=== PATIENT | female | born 1960 | race Caucasian/White ===

== ENCOUNTER 2021-03-20 16:25 | Inpatient (IN) | payer SELFPAY ==
[~2021-03-20] VITALS: Ht 167.6 cm; Wt 159.5 kg
[2021-03-20 17:12] LABS: Hematocrit 43.6 % (33.0-51.0); Hemoglobin 12.5 g/dL (11.5-16.0); LYMPHOCYTES PERCENT AUTO 7 % (21-46); MONOCYTES ABSOLUTE AUTO 1.55 K/mm3 (0.16-1.47); MONOCYTES PERCENT AUTO 8 % (4-13); Mean Corpuscular HGB 25.6 pg (26.0-34.0); Mean Corpuscular HGB Conc 28.7 g/dL (31.5-36.5); Mean Corpuscular Volume 89 fL (80-100); Mean Platelet Volume 10.1 fL (9.1-12.4); NRBC ABSOLUTE 0.14 K/mm3 (0.00-0.02); NRBC Auto 0.7 /100 WBC (0.0-0.2); Platelet Count 301 K/mm3 (150-400); RDW Coefficient Variation 21.8 % (11.7-14.2); RDW Standard Deviation 70.5 fL (35.1-46.3); Red Blood Cell Count 4.89 M/mm3 (3.80-5.20); White Blood Cell Count 18.88 K/mm3 (4.00-11.30)
[2021-03-20 17:14] LABS: BASOPHILS ABSOLUTE AUTO 0.03 K/mm3 (0.00-0.23); BASOPHILS PERCENT AUTO 0 % (0-2); EOSINOPHILS ABSOLUTE AUTO 0.01 K/mm3 (0.00-0.68); EOSINOPHILS PERCENT AUTO 0 % (0-6); IMMATURE GRAN ABSOLUTE AUTO 1.49 K/mm3 (0.00-0.10); IMMATURE GRAN PERCENT AUTO 8 % (0-1); NEUTROPHILS PERCENT AUTO 77 % (41-73)
[2021-03-20 17:36] LABS: Alanine Aminotransfer (ALT/SGP 14 U/L (12-78); Albumin, Blood 1.7 g/dL (3.4-5.0); Albumin/Globulin Ratio 0.4 (0.8-1.8); Alk Phos 92 U/L (50-136); Anion Gap 6 mmol/L (6-16); Aspartate Aminotrans (AST/SGOT 19 U/L (12-37); Blood Urea Nitrogen 24 mg/dL (8-24); CO2, Blood 27 mmol/L (21-32); Calcium, Blood 9.8 mg/dL (8.5-10.1); Chloride, Blood 100 mmol/L (98-108); Globulin, Blood 4.4 g/dL (2.2-4.0); Glomerular Filtration Rate >60 (60-); Glucose, Blood 117 mg/dL (70-99); Potassium, Blood 4.8 mmol/L (3.5-5.5); Sodium, Blood 133 mmol/L (136-145); Total Protein, Blood 6.1 g/dL (6.4-8.2)
[2021-03-20 18:12] LABS: BAND PERCENT MAN 45 % (0-8); BASOPHILS PERCENT MAN 0 % (0-2); EOSINOPHILS PERCENT MAN 0 % (0-6); LYMPHOCYTES % ATYPICAL MANUAL 1 % (0-0); LYMPHOCYTES ABSOLUTE MAN 1.13 K/mm3 (0.84-5.20); LYMPHOCYTES PERCENT MAN 5 % (21-46); METAMYELOCYTE ABSOLUTE MAN 0.75 K/mm3 (0.00-0.00); METAMYELOCYTE PERCENT MAN 4 % (0-0); MONOCYTES ABSOLUTE MAN 1.69 K/mm3 (0.16-1.47); MONOCYTES PERCENT MAN 9 % (4-13); MYELOCYTE ABSOLUTE MAN 0.37 K/mm3 (0.00-0.00); MYELOCYTE PERCENT MAN 2 % (0-0); NEUTROPHILS ABSOLUTE MAN 14.91 K/mm3 (1.96-9.15); SEG NEUTROPHILS PERCENT MAN 34 % (41-73); TOTAL CELLS COUNTED 100
[2021-03-21 01:28] LABS: Source, Urine Clean Catch
[2021-03-21 01:30] LABS: Blood, Urine Neg (Neg); Glucose Qualitative, Urine Neg (Neg); Ketones, Urine 1+ (Neg); Leukocyte Esterase, Urine 1+ (Neg); Nitrite, Urine Neg (Neg); Protein, Urine 2+ (Neg); Urobilinogen, Urine 4+ (Normal)
[2021-03-21 02:05] LABS: Bilirubin, Urine 2+ (Neg)
[2021-03-21 02:06] LABS: Color, Urine Amber (P-Yellow)
[2021-03-21 02:07] LABS: Amorphous Light (0-Heavy); Appearance, Urine Hazy (Clear); Bacteria Few /hpf; Hyaline Casts 0-2 /lpf (0-2); Red Blood Cells, Urine 0-2 /hpf (0-2); Squamous Epithelial Cells Few /hpf (Few)
[2021-03-21 03:23] LABS: Hematocrit 37.4 % (33.0-51.0); Hemoglobin 10.8 g/dL (11.5-16.0); Mean Corpuscular HGB 26.2 pg (26.0-34.0); Mean Corpuscular HGB Conc 28.9 g/dL (31.5-36.5); Mean Corpuscular Volume 91 fL (80-100); Mean Platelet Volume 10.4 fL (9.1-12.4); NRBC ABSOLUTE 0.08 K/mm3 (0.00-0.02); NRBC Auto 0.5 /100 WBC (0.0-0.2); Platelet Count 240 K/mm3 (150-400); RDW Coefficient Variation 21.4 % (11.7-14.2); RDW Standard Deviation 71.5 fL (35.1-46.3); Red Blood Cell Count 4.12 M/mm3 (3.80-5.20); White Blood Cell Count 17.08 K/mm3 (4.00-11.30)
[2021-03-21 03:47] LABS: BAND PERCENT MAN 16 % (0-8); BASOPHILS PERCENT MAN 0 % (0-2); EOSINOPHILS PERCENT MAN 0 % (0-6); LYMPHOCYTES ABSOLUTE MAN 0.85 K/mm3 (0.84-5.20); LYMPHOCYTES PERCENT MAN 5 % (21-46); METAMYELOCYTE ABSOLUTE MAN 0.34 K/mm3 (0.00-0.00); METAMYELOCYTE PERCENT MAN 2 % (0-0); MONOCYTES ABSOLUTE MAN 0.34 K/mm3 (0.16-1.47); MONOCYTES PERCENT MAN 2 % (4-13); MYELOCYTE ABSOLUTE MAN 0.34 K/mm3 (0.00-0.00); MYELOCYTE PERCENT MAN 2 % (0-0); NEUTROPHILS ABSOLUTE MAN 15.03 K/mm3 (1.96-9.15); PROMYELOCYTE ABSOLUTE MAN 0.17 K/mm3 (0.00-0.00); PROMYELOCYTE PERCENT MAN 1 % (0-0); SEG NEUTROPHILS PERCENT MAN 72 % (41-73); TOTAL CELLS COUNTED 100
[2021-03-21 03:48] LABS: Albumin, Blood 1.9 g/dL (3.4-5.0); Albumin/Globulin Ratio 0.5 (0.8-1.8); Bilirubin, Total 3.5 mg/dL (0.1-1.0); Bun/Creatinine Ratio 27.4 (12.0-20.0); Calcium, Blood 9.5 mg/dL (8.5-10.1); Creatinine, Blood 0.99 mg/dL (0.40-1.00); Globulin, Blood 3.8 g/dL (2.2-4.0); Potassium, Blood 4.8 mmol/L (3.5-5.5); Total Protein, Blood 5.7 g/dL (6.4-8.2)
--- NOTE | 2021-03-21 07:48 | NUR ---
Assumed care. VSS on 2L. Tea colored urine in lane cath. Pt is alert and oriented, very deconditioned. Surgeon at bedside getting history and consulting on pt right now.
--- NOTE | 2021-03-21 08:12 | NUR ---
Correction from previous note, hospital MD was rounding on pt, surgery has not consulted yet this AM. IV lasix and IV abx given per orders. Pt is NPO.
--- NOTE | 2021-03-21 10:37 | NUR ---
Skin assessment: Assessed pt skin this morning with the assistance of ACID PUMP OPERATOR due to pt large size and needing help rolling pt. Left side of abdomen is purplish/red as well as around back and on buttocks. Hard to know if it is from pressure or bruising, MD notifed. I found a wound on left buttocks, cleansed and floated hips. Q2hr weight shifts provided. Foam dressing placed where lane plastic is to prevent pressure injury due to anatomy in pannus area.
--- NOTE | 2021-03-21 12:53 | NUR ---
I spoke with Dr. Blackwell surgeon. He notified me he will not be doing any interventions and that I can add a diet back in for pt.
[2021-03-21 14:35] LABS: Hematocrit 36.6 % (33.0-51.0); Hemoglobin 10.4 g/dL (11.5-16.0)
--- NOTE | 2021-03-21 17:08 | NUR ---
Shift note: Pt is oriented but has been pretty sleepy and lethargic today. She is alert when you are in room and talking with her, but will quickly fall back to sleep when not in the room. VSS on 2L, tried to titrate pt off oxygen, but will desat when sleeping and has been sleeping most of the day. Pt wears CPAP at night at home, but denies and oxygen use at home. Powerglide was placed in right upper arm. IV abx and lasix given per orders. Surery consulted and decided on no interventions at this time. Abdominal US completed today, see results. Lift used in room for boosting and 2 person assist with Q2 hour weight shifts. Tele: sinus tach 100s. Lara in place and draining, urine has lightened up throughout the day. Started as a tea color and now is more of a dark yellow.
--- NOTE | 2021-03-22 00:45 | NUR ---
PT DECLINING TO WEAR HOME C-PAP. SET UP BY RT, PT STATES SHE USUALLY DOESN'T USE THE C-PAP AT HOME BECAUSE SHE SLEEPS IN A RECLINER. AT THIS TIME, SATING ABOVE 90% ON 2LPM VIA NC. SLEEPING.
--- NOTE | 2021-03-22 01:08 | NUR ---
UPDATED PT'S DAUGHTER VIA TELEPHONE. NO FURTHER QUESTIONS AT THIS TIME.
--- NOTE | 2021-03-22 04:54 | NUR ---
SHIFT SUMMARY ANDRE HAD ONE EPISODE OF PAIN, STATING IT WAS CONSTANT AND GENERALLY UNCOMFORTABLE, RATING PAIN IN LOWER BACK 4/10. RECEIVED 25MCG FENTANYL IV, WHICH PROVIDED RELIEF. MARI IN PLACE DRAINING TEA COLORED URINE. NEW IV INSERTED IN LEFT WRIST, POWERGLIDE IN BEULAH. TELEMETRY MONITORED PT IN SINUS LOW 100'S. ANTIFUNGAL CREAM APPLIED TO FOLDS IN ABDOMINAL AREA. PRELIMINARY BLOOD CULTURE SHOWED GRAM + COCCI IN CLUSTERS. 2LPM VIA NASAL CANNULA. LUNGS CLEAR, BUT DIMINISHED.
[2021-03-22 07:02] LABS: Mean Corpuscular HGB 25.7 pg (26.0-34.0); Mean Corpuscular HGB Conc 28.6 g/dL (31.5-36.5); Mean Corpuscular Volume 90 fL (80-100); Mean Platelet Volume 9.8 fL (9.1-12.4); NRBC ABSOLUTE 0.06 K/mm3 (0.00-0.02); NRBC Auto 0.3 /100 WBC (0.0-0.2); Platelet Count 210 K/mm3 (150-400); RDW Coefficient Variation 21.2 % (11.7-14.2); RDW Standard Deviation 70.1 fL (35.1-46.3); Red Blood Cell Count 3.89 M/mm3 (3.80-5.20); White Blood Cell Count 18.83 K/mm3 (4.00-11.30)
[2021-03-22 07:18] LABS: Anion Gap 4 mmol/L (6-16); Blood Urea Nitrogen 23 mg/dL (8-24); Bun/Creatinine Ratio 27.4 (12.0-20.0); CO2, Blood 32 mmol/L (21-32); Calcium, Blood 8.9 mg/dL (8.5-10.1); Chloride, Blood 99 mmol/L (98-108); Creatinine, Blood 0.84 mg/dL (0.40-1.00); Glomerular Filtration Rate >60 (60-); Glucose, Blood 95 mg/dL (70-99); Potassium, Blood 3.8 mmol/L (3.5-5.5); Sodium, Blood 135 mmol/L (136-145)
[2021-03-22 07:28] LABS: BAND PERCENT MAN 23 % (0-8); BASOPHILS PERCENT MAN 0 % (0-2); EOSINOPHILS PERCENT MAN 0 % (0-6); LYMPHOCYTES ABSOLUTE MAN 1.88 K/mm3 (0.84-5.20); LYMPHOCYTES PERCENT MAN 10 % (21-46); METAMYELOCYTE ABSOLUTE MAN 0.18 K/mm3 (0.00-0.00); METAMYELOCYTE PERCENT MAN 1 % (0-0); MONOCYTES ABSOLUTE MAN 1.12 K/mm3 (0.16-1.47); MONOCYTES PERCENT MAN 6 % (4-13); MYELOCYTE ABSOLUTE MAN 0.56 K/mm3 (0.00-0.00); MYELOCYTE PERCENT MAN 3 % (0-0); NEUTROPHILS ABSOLUTE MAN 14.68 K/mm3 (1.96-9.15); PROMYELOCYTE ABSOLUTE MAN 0.37 K/mm3 (0.00-0.00); PROMYELOCYTE PERCENT MAN 2 % (0-0); SEG NEUTROPHILS PERCENT MAN 55 % (41-73); TOTAL CELLS COUNTED 100
--- NOTE | 2021-03-22 08:44 | NUR ---
DR. MORA AND DAYTON IN ROOM AT ABOUT 0830. PT MEDICAL STATUS, NO TELE. INSPECTOR EXHAUST EMISSIONS MADE AWARE.
--- NOTE | 2021-03-22 10:32 | NUR ---
PRESSURE ULCER SORES NOTED TO L LOWER ABD, WITH BREAK IN SKIN FOLD CREASE AND TO L BUTTOCK. PT CONSENTED TO PHOTOGRAPHS, PICTURES NOW IN CHART. WOUNDS DRESSED WITH MEPILEX, WILL CONTINUE Q2 TURNING.
[2021-03-22 12:31] LABS: Vancomycin, Trough 25.4 ug/mL (5.0-10.0)
--- NOTE | 2021-03-22 17:33 | NUR ---
SUMMARY: PT IS MED STATUS, NO TELE. A/O, VSS TODAY. PT DECONDITIONED, LIFT USED FOR REPOSITIONING Q2, PT ABLE TO SIT AT EDGE OF BED WITH THERAPY, 3 MAX ASSIST. CONTINUES ON 2L 02, DENIES SOB, LUNGS CLEAR/DIM. MARI DRAINING VASU URINE, IV ANTIBIOITICS INFUSED OTHERWISE SALINE LOCKED. PT REPORTS DECREASED APPETITE, SMALL AMT OF PO INTAKE. DENIES N/V, REPORTS "SOME PAIN" AT RLQ WHEN DRINKING FLUIDS. NO ACUTE SAFETY CONCERNS AT THIS TIME. WILL MONITOR AND REPORT TO EMPERATRIZ TURNER.
--- NOTE | 2021-03-23 05:58 | NUR ---
SHIFT SUMMARY MED NO TELE STATUS. PATIENT IS A/O x4, ANSWERS ALL QUESTIONS APPROPRIATELY. VSS. PATIENT REMAINS ON 2L NC WHILE AWAKE, CPAP WHILE SLEEPING. 02 SATS ABOVE 90%. SLEPT THE MAJORITY OF SHIFT, WAKES EASILY TO VERBAL STIMULI. MARI IN PLACE DRAINING DARK VASU URINE. Q2 TURNS. TOLERATING SMALL AMOUNTS OF PO FLUID INTAKE WELL. PATIENT REPORTED MILD PAIN IN LLQ BUT REFUSED MEDICATION AND NONPHARMACOLOGICAL INTERVENTIONS TO HELP WITH PAIN. NO OTHER SIGNIFICANT CHANGES. WILL REPORT TO DAY SHIFT RN.
--- NOTE | 2021-03-23 18:20 | NUR ---
GABINO AFEBRILE, DENIES CHEST PAIN, HAS SOME MINOR ABD PAIN, ZOSYN HAS BEEN INFUSED TWICE TODAY. GABINO STILL MED NO TELE. NO ROOM AVAILABLE. HAS GREAT URINE OUTPUT ESPECIALLY AFTER THE 40 OF LASIX. LABS UNREMARKABLE EXCEPT FOR +URINE CULTURE. STILL ON 2L VIA NC, REPOSITIONED Q2 IF NOT MORE OFTEN, SHE WORKED WITH PHYSICAL THERAPY, BED BATH WAS PERFORMED TODAY, NO BM AT THIS TIME. SR 80'S SPO2>94 DID DESAT WITH MOVING TO SIDE OF THE BED BUT RECOVERED FASTER THAN PREVIOUSLY REPORTED. UPDATED PATIENTS FAMILY, WILL CONTINUE TO MONITOR AT THIS TIME.
[2021-03-24 04:32] LABS: Hematocrit 34.4 % (33.0-51.0); Hemoglobin 9.9 g/dL (11.5-16.0); Mean Corpuscular HGB 25.8 pg (26.0-34.0); Mean Corpuscular HGB Conc 28.8 g/dL (31.5-36.5); Mean Corpuscular Volume 90 fL (80-100); Mean Platelet Volume 9.8 fL (9.1-12.4); Platelet Count 182 K/mm3 (150-400); RDW Coefficient Variation 21.1 % (11.7-14.2); RDW Standard Deviation 69.2 fL (35.1-46.3); Red Blood Cell Count 3.83 M/mm3 (3.80-5.20); White Blood Cell Count 19.72 K/mm3 (4.00-11.30)
[2021-03-24 05:02] LABS: Anion Gap 6 mmol/L (6-16); Blood Urea Nitrogen 16 mg/dL (8-24); Bun/Creatinine Ratio 21.9 (12.0-20.0); CO2, Blood 35 mmol/L (21-32); Calcium, Blood 8.7 mg/dL (8.5-10.1); Chloride, Blood 95 mmol/L (98-108); Creatinine, Blood 0.73 mg/dL (0.40-1.00); Glomerular Filtration Rate >60 (60-); Glucose, Blood 103 mg/dL (70-99); Potassium, Blood 3.3 mmol/L (3.5-5.5); Sodium, Blood 136 mmol/L (136-145)
--- NOTE | 2021-03-24 05:19 | NUR ---
SHIFT SUMMARY PATIENT REMAINS MEDICAL NO TELE STATUS. ALERT AND ORIENTED x4. VSS. PATIENT ON 2-3L OVERNIGHT WITH O2 SATURATION ABOVE 90%. HOME CPAP AT BEDSIDE. TOLERATING PO FLUIDS WELL WITH NO COMPLAINTS OF PAIN. MARI IN PLACE DRAINING DARK VASU URINE. NO BM THIS SHIFT. NO OTHER SIGNIFICANT CHANGES THIS SHIFT, WILL REPORT TO DAY SHIFT RN.
[2021-03-24 05:47] LABS: BAND PERCENT MAN 20 % (0-8); BASOPHILS PERCENT MAN 0 % (0-2); EOSINOPHILS ABSOLUTE MAN 0.19 K/mm3 (0.00-0.68); EOSINOPHILS PERCENT MAN 1 % (0-6); LYMPHOCYTES ABSOLUTE MAN 0.78 K/mm3 (0.84-5.20); LYMPHOCYTES PERCENT MAN 4 % (21-46); METAMYELOCYTE ABSOLUTE MAN 0.39 K/mm3 (0.00-0.00); METAMYELOCYTE PERCENT MAN 2 % (0-0); MONOCYTES ABSOLUTE MAN 1.18 K/mm3 (0.16-1.47); MONOCYTES PERCENT MAN 6 % (4-13); MYELOCYTE ABSOLUTE MAN 0.98 K/mm3 (0.00-0.00); MYELOCYTE PERCENT MAN 5 % (0-0); NEUTROPHILS ABSOLUTE MAN 15.97 K/mm3 (1.96-9.15); PROMYELOCYTE ABSOLUTE MAN 0.19 K/mm3 (0.00-0.00); PROMYELOCYTE PERCENT MAN 1 % (0-0); SEG NEUTROPHILS PERCENT MAN 61 % (41-73); TOTAL CELLS COUNTED 100
--- NOTE | 2021-03-24 18:23 | NUR ---
END OF SHIFT: PATINET IS STILL ON 1-3L VIA NC TO MAINTAIN ABOVE 94%, HAS BEEN SR, IN 80'S DID DESATURATE WITH LARGE TURNS, TURNS PROVIDED Q2 OR SOONER. CLEANED UNDERNEATH PANUS, AND CATH CARE. PATIENT HAS LESS URINE OUTPUT, AND INCREASED EDEMA OF THE RUE AND LLE. NO LASIX IT WAS DC'D PROVIDER AWARE. PATINET APPEPITITE HAS DECREASED AND ORDERED ENSURE FOR SUPPLEMENT. NO TELE IS STILL MED SATTUS. NO CHEST PAIN, DENIES SOB, PAIN WNL. WILL CONTINUE TO MONITOR PATIENT UNTIL SHIFT CHANGE.
--- NOTE | 2021-03-25 05:30 | NUR ---
ASSUMPTION OF CARE: ASSUMED CARE FROM GIOVANNI, RN AT 0035. PATIENT RESTING IN BED WITH PARTIAL CPAP (NOSE ONLY) WITH AN 8.5 L BLEED. NOTE GIVEN TO GIOVANNI FROM PREVIOUS RN STATES PATIENT DOESN'T USE HOME CPAP BECAUSE SETTING IS 15 AND IS TOO STRONG. RT CANNOT CHANGE HOME SETTING, SO CONTACT NEEDS TO BE MADE "WITH WHOEVER IN COMMUNITY DOES CPAPS TO GET HOME CPAP SETTING CHANGED TO 8.5."
--- NOTE | 2021-03-25 05:34 | NUR ---
SHIFT SUMMARY: PATIENT DESAT TO 72% AROUND 0330. TELE CALLED THIS RN WHO WENT TO THE ROOM AND FOUND TUBING HAD DISCONNECTED FROM CPAP. PATIENT AWOKE TO THE ALARMS BUT WAS TOO GROGGY TO ASSESS THE SITUATION. THIS RN EXPLAINED WHAT HAD HAPPENED AND TRIED UNSUCCESSFULLY TO REATTACH HOSE. THIS RN CALLED RT WHO WAS ALSO UNABLE TO REATTACH HOSE AND COULD NOT FIND A REPLACEMENT. PATIENT WAS PLACED ON 3 L NC AND HAS MAINTAINED O2 SATS >94%. ALL OTHER VS HAVE BEEN STABLE THIS SHIFT SINCE ASSUMPTION OF CARE. MIDNIGHT ZOSYN IS STILL RUNNING AT TIME OF THIS NOTE AND WILL COMPLETE ~0800. WILL CONTINUE TO MONITOR AND REPORT TO ONCOMING RN.
[2021-03-25 07:45] LABS: Hematocrit 35.8 % (33.0-51.0); Hemoglobin 10.3 g/dL (11.5-16.0); Mean Corpuscular HGB Conc 28.8 g/dL (31.5-36.5); Mean Corpuscular Volume 90 fL (80-100); Mean Platelet Volume 9.5 fL (9.1-12.4); Platelet Count 249 K/mm3 (150-400); Red Blood Cell Count 3.96 M/mm3 (3.80-5.20); White Blood Cell Count 20.78 K/mm3 (4.00-11.30)
[2021-03-25 08:07] LABS: Anion Gap 5 mmol/L (6-16); Blood Urea Nitrogen 13 mg/dL (8-24); Bun/Creatinine Ratio 17.9 (12.0-20.0); CO2, Blood 36 mmol/L (21-32); Calcium, Blood 9.1 mg/dL (8.5-10.1); Chloride, Blood 94 mmol/L (98-108); Creatinine, Blood 0.73 mg/dL (0.40-1.00); Glomerular Filtration Rate >60 (60-); Glucose, Blood 100 mg/dL (70-99); Potassium, Blood 3.6 mmol/L (3.5-5.5); Sodium, Blood 135 mmol/L (136-145)
[2021-03-25 08:08] LABS: BAND PERCENT MAN 3 % (0-8); BASOPHILS PERCENT MAN 0 % (0-2); EOSINOPHILS ABSOLUTE MAN 0.41 K/mm3 (0.00-0.68); EOSINOPHILS PERCENT MAN 2 % (0-6); LYMPHOCYTES ABSOLUTE MAN 0.83 K/mm3 (0.84-5.20); LYMPHOCYTES PERCENT MAN 4 % (21-46); METAMYELOCYTE PERCENT MAN 1 % (0-0); MONOCYTES ABSOLUTE MAN 1.45 K/mm3 (0.16-1.47); MONOCYTES PERCENT MAN 7 % (4-13); MYELOCYTE ABSOLUTE MAN 0.83 K/mm3 (0.00-0.00); MYELOCYTE PERCENT MAN 4 % (0-0); NEUTROPHILS ABSOLUTE MAN 17.03 K/mm3 (1.96-9.15); SEG NEUTROPHILS PERCENT MAN 79 % (41-73); TOTAL CELLS COUNTED 100
--- NOTE | 2021-03-25 18:12 | NUR ---
TRANSFER SUMMARY PT WAS UNCHANGED MOSTLY THROUGHOUT THE DAY. MED NO TELE. A&OX4. MARI CATHETER DRAINING DARK YELLOW URINE TO GRAVITY. PERFORMED Q2 TURNS. PT RECEIVED 500 ML LACTATED RINGERS JUST PRIOR TO TRANSFER. ZOSYN STILL RUNNING. DECREASED APPETITE THROUGHOUT THE DAY. SUPPLEMENTAL ENSURE DRINKS GIVEN. SCDs USED INTERMITTENTLY THROUGHOUT THE DAY. GOOD ORAL INTAKE. DRINKING WATER APPROPRIATELY. PERFORMED DRESSING CHANGE AT LEFT ABDOMINAL FOLD. PT RECEIVED BED BATH. PT ON 1-3 LITERS NC, INCREASED TO 5 LPM WITH ACTIVITY.
--- NOTE | 2021-03-26 04:26 | NUR ---
SHIFT SUMMARY PATIENT ALERT AND ORIENTED ABLE TO VOICE NEEDS JESSE ANY PAIN CONT IV ZOSYN.MARI PATENT DRAINING BROWN URINE NO ACUTE CHANGE IN THIS SHIFT .PO FLUIDS ENCOURAGED O2 VIA N/C NO SOB NOTED LUNGS SOUNDS CLEAR.
[2021-03-26 05:50] LABS: Hematocrit 35.7 % (33.0-51.0); Hemoglobin 10.3 g/dL (11.5-16.0); Mean Corpuscular HGB 26.1 pg (26.0-34.0); Mean Corpuscular HGB Conc 28.9 g/dL (31.5-36.5); Mean Corpuscular Volume 90 fL (80-100); Mean Platelet Volume 10.1 fL (9.1-12.4); Platelet Count 247 K/mm3 (150-400); RDW Standard Deviation 67.8 fL (35.1-46.3); Red Blood Cell Count 3.95 M/mm3 (3.80-5.20); White Blood Cell Count 20.62 K/mm3 (4.00-11.30)
[2021-03-26 06:09] LABS: Alanine Aminotransfer (ALT/SGP 12 U/L (12-78); Albumin, Blood 1.6 g/dL (3.4-5.0); Albumin/Globulin Ratio 0.3 (0.8-1.8); Alk Phos 94 U/L (50-136); Anion Gap 6 mmol/L (6-16); Aspartate Aminotrans (AST/SGOT 25 U/L (12-37); Bilirubin, Total 1.7 mg/dL (0.1-1.0); Blood Urea Nitrogen 11 mg/dL (8-24); Bun/Creatinine Ratio 15.4 (12.0-20.0); CO2, Blood 35 mmol/L (21-32); Calcium, Blood 9.5 mg/dL (8.5-10.1); Chloride, Blood 94 mmol/L (98-108); Creatinine, Blood 0.71 mg/dL (0.40-1.00); Globulin, Blood 4.7 g/dL (2.2-4.0); Glomerular Filtration Rate >60 (60-); Glucose, Blood 96 mg/dL (70-99); Potassium, Blood 3.7 mmol/L (3.5-5.5); Sodium, Blood 135 mmol/L (136-145); Total Protein, Blood 6.3 g/dL (6.4-8.2)
[2021-03-26 06:21] LABS: BAND PERCENT MAN 14 % (0-8); BASOPHILS PERCENT MAN 0 % (0-2); EOSINOPHILS PERCENT MAN 1 % (0-6); LYMPHOCYTES ABSOLUTE MAN 1.03 K/mm3 (0.84-5.20); LYMPHOCYTES PERCENT MAN 5 % (21-46); METAMYELOCYTE PERCENT MAN 1 % (0-0); MONOCYTES PERCENT MAN 1 % (4-13); MYELOCYTE ABSOLUTE MAN 0.41 K/mm3 (0.00-0.00); MYELOCYTE PERCENT MAN 2 % (0-0); NEUTROPHILS ABSOLUTE MAN 18.55 K/mm3 (1.96-9.15); SEG NEUTROPHILS PERCENT MAN 76 % (41-73); TOTAL CELLS COUNTED 100
--- NOTE | 2021-03-26 17:09 | NUR ---
PATIENT WEAK IN EXTREMITIES. EDEMA +3, LIA AREA ENLARGED WITH WHAT APPEARS TO BE EDEMA. SKIN ON EXTREMITIES BORWN AND RAISED SCALEY. PATIENT HAS A DRESSING ON AN OPEN AREA IN LIA AREA. STAT LOCK FOR MARI WAS PLACED ON THAT AREA THIS AM, SO IT WAS REMOVED THIS SHIFT AND REPLACED ON THE RIGHT THIGH. PATIENT HAS CREAMS FOR ABD. FOLDS. SHE STATES THAT THEY ARE NOT PAINFUL. PATIENT IS ON ROOM AIR AT THIS TIME, HOWEVER SHE WILL PROBABLY NEED 02 AT NIGHT SHE USUALLY WEARS A CPAP, BUT IS UNABLE TO TOLERATE THE CPAP MACHINE THAT IS IN THE ROOM.
--- NOTE | 2021-03-26 17:28 | NUR ---
PATIENT CAME TO US FROM ER MID DAY. SHE WAS ON 10 L HIGHFLO 02. SHE IS NOW DOWN TO 8L02 HIGHFLO AND TOLERATING. SATS ARE 97-98%. SATS DO DECREASE WITH ACTIVITY. NO OTHER SIGNIFICANT CHANGES SINCE TRANSFER NOTE DOCUMENTATION A FEW HOURS AGO.
--- NOTE | 2021-03-27 05:22 | NUR ---
SHIFT SUMMARY Received patient AAOX4 in no acute distress. No complaint of pain or disconfort noted. She is on 2L OF O2 via N/C. She slept throughout the night. We will continue to monitor patient.
[2021-03-27 05:31] LABS: BASOPHILS ABSOLUTE AUTO 0.11 K/mm3 (0.00-0.23); BASOPHILS PERCENT AUTO 1 % (0-2); EOSINOPHILS ABSOLUTE AUTO 0.21 K/mm3 (0.00-0.68); EOSINOPHILS PERCENT AUTO 1 % (0-6); Hematocrit 36.3 % (33.0-51.0); Hemoglobin 10.2 g/dL (11.5-16.0); IMMATURE GRAN ABSOLUTE AUTO 1.18 K/mm3 (0.00-0.10); IMMATURE GRAN PERCENT AUTO 6 % (0-1); LYMPHOCYTES ABSOLUTE AUTO 0.94 K/mm3 (0.84-5.20); LYMPHOCYTES PERCENT AUTO 5 % (21-46); MONOCYTES ABSOLUTE AUTO 1.01 K/mm3 (0.16-1.47); MONOCYTES PERCENT AUTO 6 % (4-13); Mean Corpuscular HGB 25.6 pg (26.0-34.0); Mean Corpuscular HGB Conc 28.1 g/dL (31.5-36.5); Mean Corpuscular Volume 91 fL (80-100); Mean Platelet Volume 9.4 fL (9.1-12.4); NEUTROPHILS ABSOLUTE AUTO 14.92 K/mm3 (1.96-9.15); NEUTROPHILS PERCENT AUTO 81 % (41-73); Platelet Count 291 K/mm3 (150-400); RDW Coefficient Variation 21.1 % (11.7-14.2); RDW Standard Deviation 69.2 fL (35.1-46.3); Red Blood Cell Count 3.99 M/mm3 (3.80-5.20); White Blood Cell Count 18.37 K/mm3 (4.00-11.30)
--- NOTE | 2021-03-27 20:31 | NUR ---
SHIFT SUMMARY PT IS A&O, PLEASANT AND CO-OP. VERY LIMITED MOBILITY TODAY; MORBIDLY OBESE AND NONAMBULATORY AT THIS TIME. PT TURNED Q2 THRU OUT THE DAY WITH PILLOWS TO KEEP OFF BUTTOCKS. 3- MARSHALL SIZE WOUNDS TO COCCYX/LIA AREA NOTED. MEPILEX REPLACED X1 D/T INCONTINENT STOOL TODAY. MARI TO GRAVITY; PATENT. ABD VERY LARGE AND SWOLLEN, ESPECIALLY ON L SIDE. CT CANCELED D/T WEIGHT/SIZE LIMITS. ABD US DONE IN RM AND THEN PT TAKEN DOWN TO IMAGING FOR US GUIDED ASPIRATION OF ABD FLUID. PT DENIED PAIN AFTER PROCEDURE. DECLINED TO WEAR CPAP AT HS; SIGNED REFUSAL FOR RT. P/T HERE TODAY TO WORK WITH PT, BUT IMAGING NEEDING TO COMPLETE US. BARIATRIC RECLINER OBTAINED BY P/T TO ALLOW PT TO GET UP TO CHAIR, BUT PT DID NOT RETURN IN TIME TODAY FOR THERAPY TO GET HER UP. RESTED QUIETLY THIS AFTERNOON. DENIED FURTHER NEEDS. CALL LT IN REACH.
--- NOTE | 2021-03-28 04:09 | NUR ---
SHIFT SUMMARY PATIENT HAD NO ACUTE CHANGES OBSERVED. AXOX 3 AND BEDBOUND. LIFT ROOM. TAKES MEDICATION WHOLE WITH WATER. POWERGLIDE JAMILAH AND PIVS REMAIN INTACT. ON 2L O2 NC PRN AT NIGHT. MARI PATENT AND DRAINING TO GRAVITY. IV ABX INFUSED. VSS/AFEBRILE. DENIES PAIN, SOB, AND N/V. COOPERATIVE WITH CARE. CALL LIGHT IN REACH. BED IN LOWEST POSITION. WILL CONTINUE TO MONITOR UNTIL DAY SHIFT NURSE ASSUMES CARE.
[2021-03-28 06:27] LABS: BASOPHILS PERCENT AUTO 1 % (0-2); EOSINOPHILS ABSOLUTE AUTO 0.22 K/mm3 (0.00-0.68); EOSINOPHILS PERCENT AUTO 1 % (0-6); Hematocrit 35.4 % (33.0-51.0); IMMATURE GRAN ABSOLUTE AUTO 0.73 K/mm3 (0.00-0.10); IMMATURE GRAN PERCENT AUTO 4 % (0-1); LYMPHOCYTES PERCENT AUTO 5 % (21-46); MONOCYTES ABSOLUTE AUTO 0.99 K/mm3 (0.16-1.47); MONOCYTES PERCENT AUTO 6 % (4-13); Mean Corpuscular HGB Conc 28.2 g/dL (31.5-36.5); Mean Corpuscular Volume 92 fL (80-100); Mean Platelet Volume 9.2 fL (9.1-12.4); NEUTROPHILS ABSOLUTE AUTO 13.84 K/mm3 (1.96-9.15); NEUTROPHILS PERCENT AUTO 83 % (41-73); Platelet Count 300 K/mm3 (150-400); RDW Coefficient Variation 20.8 % (11.7-14.2); Red Blood Cell Count 3.85 M/mm3 (3.80-5.20); White Blood Cell Count 16.68 K/mm3 (4.00-11.30)
--- NOTE | 2021-03-28 17:49 | NUR ---
SHIFT SUMMARY PATIENT IS ALERT AND ORIENTED X3. PATIENT IS BEDBOUND BUT HAS WORKED WITH PT AND GOT INTO THE CHAIR TODAY. POWERGLIDE REMAINS INTACT. NO ACUTE ISSUES THIS SHIFT. PATIENT IS ON 2 LITERS 02. VITAL SIGNS REVIEWED. PATIENT DENIES PAIN, NAUSEA, VOMITTING OR SOB THIS SHIFT. PATIENT IS PLEASENT AND COOPERATIVE WITH CARE. BED IN LOWEST AND LOCKED POSITION. CALL LIGHT IN PLACE. WILL MONITOR UNTIL SHIFT CHANGE.
--- NOTE | 2021-03-29 04:22 | NUR ---
SHIFT SUMMARY Pt rested well, reports pain to LUQ with movement, denies need for pain med. No c/o nausea, johnson po well, lane patent with dark, concentrated urine noted, lane care done, loose bm x 2 this shift. Afebrile, vss, abx's per mar, no c/o chills. 2 small open areas noted to pannus and L buttocks, covered with bordered foam drsg. Pt repositioned for comfort, anticipate d/c when medically stable.
[2021-03-29 05:36] LABS: Hematocrit 34.6 % (33.0-51.0); Hemoglobin 9.8 g/dL (11.5-16.0); Mean Corpuscular HGB 26.2 pg (26.0-34.0); Mean Corpuscular HGB Conc 28.3 g/dL (31.5-36.5); Mean Corpuscular Volume 93 fL (80-100); Mean Platelet Volume 9.4 fL (9.1-12.4); Platelet Count 330 K/mm3 (150-400); RDW Coefficient Variation 21.1 % (11.7-14.2); RDW Standard Deviation 69.9 fL (35.1-46.3); Red Blood Cell Count 3.74 M/mm3 (3.80-5.20); White Blood Cell Count 16.19 K/mm3 (4.00-11.30)
[2021-03-29 06:05] LABS: BAND PERCENT MAN 1 % (0-8); BASOPHILS PERCENT MAN 0 % (0-2); EOSINOPHILS ABSOLUTE MAN 0.32 K/mm3 (0.00-0.68); EOSINOPHILS PERCENT MAN 2 % (0-6); LYMPHOCYTES ABSOLUTE MAN 0.48 K/mm3 (0.84-5.20); LYMPHOCYTES PERCENT MAN 3 % (21-46); MONOCYTES ABSOLUTE MAN 0.64 K/mm3 (0.16-1.47); MONOCYTES PERCENT MAN 4 % (4-13); MYELOCYTE ABSOLUTE MAN 0.48 K/mm3 (0.00-0.00); MYELOCYTE PERCENT MAN 3 % (0-0); NEUTROPHILS ABSOLUTE MAN 14.24 K/mm3 (1.96-9.15); SEG NEUTROPHILS PERCENT MAN 87 % (41-73); TOTAL CELLS COUNTED 100
[2021-03-29 12:10] LABS: M PNEUMONIAE IGG ABS 340 U/mL (0-99); M PNEUMONIAE IGM ABS <770 U/mL (0-769)
--- NOTE | 2021-03-29 16:14 | NUR ---
SHIFT SUMMARY PATIENT IS ALERT AND ORIENTED X4. PATIENT HAS HAD NO COMPLAINTS OF PAIN, SOB, NAUSEA, OR VOMITTING THIS SHIFT. PATIENT HAS WORKED WITH PHYSICAL THERAPY AND GOT TO THE CHAIR WITH A ONE PERSON ASSIST USING A GAIT BELT AND WALKER. VITAL SIGNS REVIEWED. PATIENT HAS HAD NO ACUTE EVENTS THIS SHIFT. MEMPLEX WERE EXCHANGED WITH NEW ONES. PATIENT HAS CONCENTRATED URINE DRAINING TO GRAVITY IN MARI. CALL LIGHT IN PLACE. BED IN LOCKED AND LOWERED POSITION. WILL MONITOR UNTIL SHIFT CHANGE.
[2021-03-30 05:03] LABS: BASOPHILS ABSOLUTE AUTO 0.05 K/mm3 (0.00-0.23); BASOPHILS PERCENT AUTO 0 % (0-2); EOSINOPHILS ABSOLUTE AUTO 0.18 K/mm3 (0.00-0.68); EOSINOPHILS PERCENT AUTO 1 % (0-6); Hematocrit 32.8 % (33.0-51.0); Hemoglobin 9.3 g/dL (11.5-16.0); IMMATURE GRAN ABSOLUTE AUTO 0.18 K/mm3 (0.00-0.10); IMMATURE GRAN PERCENT AUTO 1 % (0-1); LYMPHOCYTES ABSOLUTE AUTO 0.61 K/mm3 (0.84-5.20); LYMPHOCYTES PERCENT AUTO 4 % (21-46); MONOCYTES ABSOLUTE AUTO 0.79 K/mm3 (0.16-1.47); MONOCYTES PERCENT AUTO 5 % (4-13); Mean Corpuscular HGB 26.7 pg (26.0-34.0); Mean Corpuscular HGB Conc 28.4 g/dL (31.5-36.5); Mean Corpuscular Volume 94 fL (80-100); Mean Platelet Volume 9.6 fL (9.1-12.4); NEUTROPHILS ABSOLUTE AUTO 12.74 K/mm3 (1.96-9.15); NEUTROPHILS PERCENT AUTO 88 % (41-73); Platelet Count 331 K/mm3 (150-400); RDW Coefficient Variation 21.3 % (11.7-14.2); Red Blood Cell Count 3.48 M/mm3 (3.80-5.20); White Blood Cell Count 14.55 K/mm3 (4.00-11.30)
--- NOTE | 2021-03-30 05:43 | NUR ---
SHIFT SUMMARY Pt rested well, reports pain somewhat improved to abd this shift, johnson po well, no nausea, afebrile, abx's per mar. Pt has multiple open areas to L abd, L buttocks, and pannus with mepilex drsg covering. Pt a/o x 4, lane patent with dark, concentrated urine noted, lane care done this shift. Pt repositioned for comfort, no bm this shift. VSS, anticipate d/c when medically stable.
--- NOTE | 2021-03-30 15:49 | NUR ---
PT HAD BEDBATH TODAY. PT LEAKING AROUND CATHETER, BUT ALSO URINE IS DRAINING IN BAG. PT IS VERY LARGE AND LIKELY CATHETER IS TOO SMALL FOR PT. PT IS ABLE TO TURN SIDE TO SIDE. PT HAS QUARTER SIZE STAGE 2 PRESSURE SORE TO LEFT SIDE BUTTOCK, NO DRAINAGE NOTED. WOUND CLEANSED AND CLEAN MEPILEX APPLIED. INSERTION SITE ON R ABD HAS COMLETELY HEALED. NO SIGNS OF INFECTION AT SITE, NO REDNESS OR SWELLING. PT ALSO HAD OPEN SORES TO LEFT SIDE OF ABD 4 SMALL STAGE 2 SORES CLEANSED AND COVERED WITH MEPILEX. NO S/S OF INFECTION.
--- NOTE | 2021-03-30 17:04 | NUR ---
SHIFT SUMMARY: PT IS A/O X 4 DID NOT GET OOB TODAY REPORTING SHE WAS TOO TIRED AND SORE TO GET UP TODAY. PT ABD IS TIGHT AND TENDS TO BE HEAVIER ON HER LEFT SIDE. URINE WAS LEAKING AROUND CATHETER TODAY. FLUSHED CATHETER WITH STERILE WATER AND SEDIMENT DID DISLODGE INTO CATHETER TUBING. PT REPORTS BLADDER SPASMS DECREASED POST FLUSHING. PT DENIED ANY ABD PAIN T/OUT DAY. PT TOLERATED ROLL CHANGES AND BED BATH. DRESSINGS CHANGED TO WOUNDS. NO S/S OF INFECTION AT SITES. PT ATE WELL, URINE CONTINUES TO BE DARK VASU. ENCOURAGED PT TO DRINK MORE FLUIDS.
[2021-03-31 04:43] LABS: Hematocrit 32.8 % (33.0-51.0); Hemoglobin 9.3 g/dL (11.5-16.0); Mean Corpuscular HGB 26.5 pg (26.0-34.0); Mean Corpuscular HGB Conc 28.4 g/dL (31.5-36.5); Mean Corpuscular Volume 93 fL (80-100); Mean Platelet Volume 9.3 fL (9.1-12.4); Platelet Count 343 K/mm3 (150-400); RDW Coefficient Variation 21.3 % (11.7-14.2); RDW Standard Deviation 71.8 fL (35.1-46.3); Red Blood Cell Count 3.51 M/mm3 (3.80-5.20); White Blood Cell Count 15.05 K/mm3 (4.00-11.30)
--- NOTE | 2021-03-31 07:38 | NUR ---
PT IS A/OX4. HER MARI IS PATENT AND OUTPUT IS YELLOW/VASU & CLEAR. HER SATS WERE >90s ON 2L OF O2. POWER GLIDE DRESSING WAS CHANGED, DATED AND DOCUMENTED. THE MEPILEX DRESSING ON HER BUTTOCKS WAS CHANGED WELL. NO OTHER NEW CHANGES TO REPORT.
--- NOTE | 2021-04-01 04:33 | NUR ---
SHIFT SUMMARY PATIENT ALERT AND ORIENTED X4 PLEASANT AND CALM ABLE TO VOICE NEEDS JESSE PAIN AT THIS MOMENT.CONT ABT /ZOSYN FOLLEY CATH DRAINING WELL VASU URINE PO FLUIDS ENCOURAGED AND OFFERED.PT C/O DISCOMFORT AND PAIN TO HER LEFT HAND PERIPHERAL LINE. LINE REMOVED NO BLEEDING NOTED POWERGLIDE TO RIGHT HAND INTACT FLUSHING WELL DRESSING INTACT.NO ANY ACUTE CHANGES NOTED
[2021-04-01 15:28] LABS: BASOPHILS ABSOLUTE AUTO 0.07 K/mm3 (0.00-0.23); BASOPHILS PERCENT AUTO 1 % (0-2); EOSINOPHILS ABSOLUTE AUTO 0.08 K/mm3 (0.00-0.68); EOSINOPHILS PERCENT AUTO 1 % (0-6); Hematocrit 35.6 % (33.0-51.0); Hemoglobin 10.2 g/dL (11.5-16.0); IMMATURE GRAN ABSOLUTE AUTO 0.14 K/mm3 (0.00-0.10); IMMATURE GRAN PERCENT AUTO 1 % (0-1); LYMPHOCYTES PERCENT AUTO 4 % (21-46); MONOCYTES ABSOLUTE AUTO 0.56 K/mm3 (0.16-1.47); MONOCYTES PERCENT AUTO 4 % (4-13); Mean Corpuscular HGB 26.9 pg (26.0-34.0); Mean Corpuscular HGB Conc 28.7 g/dL (31.5-36.5); Mean Corpuscular Volume 94 fL (80-100); Mean Platelet Volume 9.1 fL (9.1-12.4); NEUTROPHILS ABSOLUTE AUTO 12.51 K/mm3 (1.96-9.15); NEUTROPHILS PERCENT AUTO 90 % (41-73); Platelet Count 349 K/mm3 (150-400); RDW Coefficient Variation 21.2 % (11.7-14.2); RDW Standard Deviation 71.9 fL (35.1-46.3); Red Blood Cell Count 3.79 M/mm3 (3.80-5.20); White Blood Cell Count 13.86 K/mm3 (4.00-11.30)
[2021-04-01 15:33] LABS: Alanine Aminotransfer (ALT/SGP 11 U/L (12-78); Albumin, Blood 1.8 g/dL (3.4-5.0); Albumin/Globulin Ratio 0.3 (0.8-1.8); Alk Phos 116 U/L (50-136); Anion Gap 2 mmol/L (6-16); Aspartate Aminotrans (AST/SGOT 26 U/L (12-37); Bilirubin, Total 1.2 mg/dL (0.1-1.0); Blood Urea Nitrogen 12 mg/dL (8-24); Bun/Creatinine Ratio 12.8 (12.0-20.0); CO2, Blood 40 mmol/L (21-32); Calcium, Blood 9.8 mg/dL (8.5-10.1); Chloride, Blood 93 mmol/L (98-108); Creatinine, Blood 0.94 mg/dL (0.40-1.00); Globulin, Blood 5.4 g/dL (2.2-4.0); Glomerular Filtration Rate >60 (60-); Glucose, Blood 100 mg/dL (70-99); Potassium, Blood 4.3 mmol/L (3.5-5.5); Sodium, Blood 135 mmol/L (136-145); Total Protein, Blood 7.2 g/dL (6.4-8.2)
--- NOTE | 2021-04-01 18:49 | NUR ---
SHIFT SUMMARY: PT A/O X 4 PLEASANT AND COOPERATIVE WITH CARES. PT DID TX TO CHAIR TODAY FOR A LITTLE WHILE BUT IT WAS PAINFUL FOR HER TO SIT AND REPORTS THE WEIGHT OF HER ABD ON LEFT SIDE MAKES HER LEFT LEG ACHE WHEN SITTING. PT GIVEN LASIX AND URINE OUTPUT INCREASED AND URINE NOW VERY LIGHT CLEAR YELLOW. PT ENCOURAGED TO LET US REMOVE CATHETER BUT SHE DID NOT WANT IT REMOVED WHILE RECEIVING LASIX.
--- NOTE | 2021-04-02 04:16 | NUR ---
SHIFT SUMMARY PATIENT AOX4 ABLE TO VOICE NEEDS NO ACUTE CHANGE IN THIS SHIFT CONT TO MONITOR URINE OUTPUT POST LASIX IV VASU URINE DRAINING IN MARI CATH TOTAL OUTPUT 3200.
[2021-04-02 05:34] LABS: International Normalized Ratio 1.09; Prothrombin Time Results 11.4 Sec (9.7-11.5)
[2021-04-02 05:45] LABS: Alanine Aminotransfer (ALT/SGP 9 U/L (12-78); Albumin, Blood 1.6 g/dL (3.4-5.0); Albumin/Globulin Ratio 0.3 (0.8-1.8); Alk Phos 97 U/L (50-136); Anion Gap 5 mmol/L (6-16); Aspartate Aminotrans (AST/SGOT 19 U/L (12-37); Bilirubin, Total 0.9 mg/dL (0.1-1.0); Blood Urea Nitrogen 12 mg/dL (8-24); Bun/Creatinine Ratio 13.6 (12.0-20.0); CO2, Blood 38 mmol/L (21-32); Calcium, Blood 9.4 mg/dL (8.5-10.1); Chloride, Blood 95 mmol/L (98-108); Creatinine, Blood 0.88 mg/dL (0.40-1.00); Globulin, Blood 4.7 g/dL (2.2-4.0); Glomerular Filtration Rate >60 (60-); Glucose, Blood 84 mg/dL (70-99); Potassium, Blood 3.7 mmol/L (3.5-5.5); Prealbumin, Blood 3.7 mg/dL (20.0-40.0); Sodium, Blood 138 mmol/L (136-145); Total Protein, Blood 6.3 g/dL (6.4-8.2)
[2021-04-02 07:55] LABS: BASOPHILS ABSOLUTE AUTO 0.07 K/mm3 (0.00-0.23); BASOPHILS PERCENT AUTO 1 % (0-2); EOSINOPHILS ABSOLUTE AUTO 0.14 K/mm3 (0.00-0.68); EOSINOPHILS PERCENT AUTO 1 % (0-6); Hematocrit 31.2 % (33.0-51.0); Hemoglobin 8.9 g/dL (11.5-16.0); IMMATURE GRAN ABSOLUTE AUTO 0.09 K/mm3 (0.00-0.10); IMMATURE GRAN PERCENT AUTO 1 % (0-1); LYMPHOCYTES ABSOLUTE AUTO 0.58 K/mm3 (0.84-5.20); LYMPHOCYTES PERCENT AUTO 5 % (21-46); MONOCYTES ABSOLUTE AUTO 0.63 K/mm3 (0.16-1.47); MONOCYTES PERCENT AUTO 6 % (4-13); Mean Corpuscular HGB 27.1 pg (26.0-34.0); Mean Corpuscular HGB Conc 28.5 g/dL (31.5-36.5); Mean Corpuscular Volume 95 fL (80-100); Mean Platelet Volume 9.7 fL (9.1-12.4); NEUTROPHILS ABSOLUTE AUTO 9.27 K/mm3 (1.96-9.15); NEUTROPHILS PERCENT AUTO 86 % (41-73); Platelet Count 310 K/mm3 (150-400); RDW Coefficient Variation 21.2 % (11.7-14.2); RDW Standard Deviation 71.4 fL (35.1-46.3); Red Blood Cell Count 3.29 M/mm3 (3.80-5.20); White Blood Cell Count 10.78 K/mm3 (4.00-11.30)
--- NOTE | 2021-04-02 16:41 | NUR ---
SHIFT SUMMARY PT WORKING WITH PT/OT AND AMBULATED IN ROOM A SMALL DISTANCE AND THEN GOT UP INTO CHAIR. FOAM CHANGED ON SACRAL WOUND TODAY. ORDER TO KEEP MARI IN FOR NOW OBTAINED TO HELP WITH WOUND HEALING. NO OTHER ACUTE CHANGES IN ASSESSMENT AT THIS TIME. VS REVIEWED. PT RESTING IN BED. CALL LIGHT IN REACH.
--- NOTE | 2021-04-03 06:09 | NUR ---
SHIFT SUMMARY AOX4 CONT ABT/ZOSY TOLERATING WELL MEDIUM SOFT BM THIS MORNING.NO ACUTE CHANGE IN THIS SHIFT
[2021-04-03 07:31] LABS: BASOPHILS ABSOLUTE AUTO 0.06 K/mm3 (0.00-0.23); BASOPHILS PERCENT AUTO 1 % (0-2); EOSINOPHILS ABSOLUTE AUTO 0.21 K/mm3 (0.00-0.68); EOSINOPHILS PERCENT AUTO 2 % (0-6); Hematocrit 30.4 % (33.0-51.0); Hemoglobin 8.8 g/dL (11.5-16.0); IMMATURE GRAN ABSOLUTE AUTO 0.08 K/mm3 (0.00-0.10); IMMATURE GRAN PERCENT AUTO 1 % (0-1); LYMPHOCYTES ABSOLUTE AUTO 0.79 K/mm3 (0.84-5.20); LYMPHOCYTES PERCENT AUTO 9 % (21-46); MONOCYTES ABSOLUTE AUTO 0.71 K/mm3 (0.16-1.47); MONOCYTES PERCENT AUTO 8 % (4-13); Mean Corpuscular HGB Conc 28.9 g/dL (31.5-36.5); Mean Corpuscular Volume 93 fL (80-100); Mean Platelet Volume 9.2 fL (9.1-12.4); NEUTROPHILS ABSOLUTE AUTO 7.22 K/mm3 (1.96-9.15); NEUTROPHILS PERCENT AUTO 80 % (41-73); Platelet Count 287 K/mm3 (150-400); RDW Coefficient Variation 21.4 % (11.7-14.2); RDW Standard Deviation 72.3 fL (35.1-46.3); Red Blood Cell Count 3.26 M/mm3 (3.80-5.20); White Blood Cell Count 9.07 K/mm3 (4.00-11.30)
[2021-04-03 07:49] LABS: Alanine Aminotransfer (ALT/SGP 8 U/L (12-78); Albumin, Blood 1.6 g/dL (3.4-5.0); Albumin/Globulin Ratio 0.3 (0.8-1.8); Alk Phos 99 U/L (50-136); Anion Gap 5 mmol/L (6-16); Aspartate Aminotrans (AST/SGOT 19 U/L (12-37); Bilirubin, Total 1.1 mg/dL (0.1-1.0); Blood Urea Nitrogen 15 mg/dL (8-24); Bun/Creatinine Ratio 17.3 (12.0-20.0); CO2, Blood 39 mmol/L (21-32); Calcium, Blood 9.4 mg/dL (8.5-10.1); Chloride, Blood 92 mmol/L (98-108); Creatinine, Blood 0.87 mg/dL (0.40-1.00); Globulin, Blood 4.9 g/dL (2.2-4.0); Glomerular Filtration Rate >60 (60-); Glucose, Blood 82 mg/dL (70-99); Potassium, Blood 3.7 mmol/L (3.5-5.5); Sodium, Blood 136 mmol/L (136-145); Total Protein, Blood 6.5 g/dL (6.4-8.2)
--- NOTE | 2021-04-03 19:31 | NUR ---
SHIFT SUMMARY PT UP FOR MEALS TODAY. REPORTS SHE WOULD LIKE TO GO TO REHAB SINCE SHE WAS GIVEN THE OPPORTUNITY TO THINK ABOUT IT. HAS HAD NO PAIN. HAS NOT REPORTED FEELING SHORT OF BREATH SINCE O2 DROPPED TO 1L/M.
--- NOTE | 2021-04-04 04:27 | NUR ---
SHIFT SUMMARY PATIENT REMAIN ALERT ORIENTED X4 ABLE TO MAKE NEEDS KNOWN .DRESSING TO HER POWERGLIDE CHANGED NO S/S OF INFECTION NOTED.WOUND CARE DONE DRESSING CHANGED TURNING AND REPOSITION FOR COMFORT MARI CATH INTACT DRAINING VASU URINE.
[2021-04-04 04:55] LABS: BASOPHILS ABSOLUTE AUTO 0.07 K/mm3 (0.00-0.23); BASOPHILS PERCENT AUTO 1 % (0-2); EOSINOPHILS ABSOLUTE AUTO 0.17 K/mm3 (0.00-0.68); EOSINOPHILS PERCENT AUTO 2 % (0-6); Hematocrit 30.8 % (33.0-51.0); Hemoglobin 8.8 g/dL (11.5-16.0); IMMATURE GRAN ABSOLUTE AUTO 0.07 K/mm3 (0.00-0.10); IMMATURE GRAN PERCENT AUTO 1 % (0-1); LYMPHOCYTES ABSOLUTE AUTO 0.74 K/mm3 (0.84-5.20); LYMPHOCYTES PERCENT AUTO 9 % (21-46); MONOCYTES ABSOLUTE AUTO 0.65 K/mm3 (0.16-1.47); MONOCYTES PERCENT AUTO 8 % (4-13); Mean Corpuscular HGB 26.9 pg (26.0-34.0); Mean Corpuscular HGB Conc 28.6 g/dL (31.5-36.5); Mean Corpuscular Volume 94 fL (80-100); Mean Platelet Volume 9.2 fL (9.1-12.4); NEUTROPHILS ABSOLUTE AUTO 6.57 K/mm3 (1.96-9.15); NEUTROPHILS PERCENT AUTO 80 % (41-73); Platelet Count 266 K/mm3 (150-400); RDW Coefficient Variation 21.5 % (11.7-14.2); RDW Standard Deviation 73.4 fL (35.1-46.3); Red Blood Cell Count 3.27 M/mm3 (3.80-5.20); White Blood Cell Count 8.27 K/mm3 (4.00-11.30)
[2021-04-04 05:11] LABS: Anion Gap 4 mmol/L (6-16); Blood Urea Nitrogen 19 mg/dL (8-24); Bun/Creatinine Ratio 21.5 (12.0-20.0); CO2, Blood 40 mmol/L (21-32); Calcium, Blood 9.4 mg/dL (8.5-10.1); Chloride, Blood 91 mmol/L (98-108); Creatinine, Blood 0.89 mg/dL (0.40-1.00); Glomerular Filtration Rate >60 (60-); Glucose, Blood 91 mg/dL (70-99); Potassium, Blood 3.4 mmol/L (3.5-5.5); Sodium, Blood 135 mmol/L (136-145)
--- NOTE | 2021-04-04 18:25 | NUR ---
SHIFT SUMMARY PT UP TO CHAIR FOR MEALS. KAMALJIT REMOVED THIS AFTERNOON AND HAS VOIDED SINCE. PLANS FOR 7 MORE DAYS OF IV ANTIBIIOTICS OF ROCEPHIN. PT HAS HAD NO REPORTS OF PAIN OR RESP DISTRESS. ATTEMPTED TO REMOVE O2 BUT SATS DROPPED TO MID 80'S AND PT STRUGGLED TO MAINTAIN IN 90'S. REPLACED WITH 1/2L/M BUT STILL DROPPED WITH ACTIVITY. CURRENTLY AT 2L/M.
[2021-04-05 05:37] LABS: BASOPHILS ABSOLUTE AUTO 0.04 K/mm3 (0.00-0.23); BASOPHILS PERCENT AUTO 1 % (0-2); EOSINOPHILS ABSOLUTE AUTO 0.18 K/mm3 (0.00-0.68); EOSINOPHILS PERCENT AUTO 2 % (0-6); Hematocrit 31.3 % (33.0-51.0); Hemoglobin 9.1 g/dL (11.5-16.0); IMMATURE GRAN ABSOLUTE AUTO 0.05 K/mm3 (0.00-0.10); IMMATURE GRAN PERCENT AUTO 1 % (0-1); LYMPHOCYTES ABSOLUTE AUTO 0.96 K/mm3 (0.84-5.20); LYMPHOCYTES PERCENT AUTO 12 % (21-46); MONOCYTES ABSOLUTE AUTO 0.75 K/mm3 (0.16-1.47); MONOCYTES PERCENT AUTO 10 % (4-13); Mean Corpuscular HGB 27.4 pg (26.0-34.0); Mean Corpuscular HGB Conc 29.1 g/dL (31.5-36.5); Mean Corpuscular Volume 94 fL (80-100); Mean Platelet Volume 8.9 fL (9.1-12.4); NEUTROPHILS ABSOLUTE AUTO 5.78 K/mm3 (1.96-9.15); NEUTROPHILS PERCENT AUTO 75 % (41-73); Platelet Count 284 K/mm3 (150-400); RDW Coefficient Variation 21.6 % (11.7-14.2); Red Blood Cell Count 3.32 M/mm3 (3.80-5.20); White Blood Cell Count 7.76 K/mm3 (4.00-11.30)
[2021-04-05 05:55] LABS: Alanine Aminotransfer (ALT/SGP 12 U/L (12-78); Albumin, Blood 1.9 g/dL (3.4-5.0); Albumin/Globulin Ratio 0.4 (0.8-1.8); Alk Phos 103 U/L (50-136); Anion Gap 4 mmol/L (6-16); Aspartate Aminotrans (AST/SGOT 25 U/L (12-37); Bilirubin, Total 0.8 mg/dL (0.1-1.0); Blood Urea Nitrogen 21 mg/dL (8-24); Bun/Creatinine Ratio 25.9 (12.0-20.0); CO2, Blood 40 mmol/L (21-32); Calcium, Blood 10.1 mg/dL (8.5-10.1); Chloride, Blood 92 mmol/L (98-108); Creatinine, Blood 0.81 mg/dL (0.40-1.00); Globulin, Blood 5.4 g/dL (2.2-4.0); Glomerular Filtration Rate >60 (60-); Glucose, Blood 99 mg/dL (70-99); Potassium, Blood 3.5 mmol/L (3.5-5.5); Sodium, Blood 136 mmol/L (136-145); Total Protein, Blood 7.3 g/dL (6.4-8.2)
--- NOTE | 2021-04-05 08:20 | NUR ---
PATIENT HAD A GOOD NIGHT WITHOUT COMPLAINT OF PAIN OR DISCOMFORT. ROB WAS UP SEVERAL TIMES TO USE BSC. THIS WOULD REALLY WEAR HER OUT SHE WAS LEAKING STOOL AND COULD ONLY STAND (EVEN WITH ASSIST AND A WALKER) FOR A FEW SECONDS BEFORE SHE COULD STAND AGAIN. RIGHT LOWER GLUTEUL DECUBITUS COVERED WITH FOAM, THEN TEGADERM. DRESSING WILL MOST LIKELY NEED TO BE CHANGED SEVERAL MORE TIMES TODAY SHE CONTINUES TO LEAK. SHE IS VERY PLEASED WITH HER PROGRESS GETTING OOB TO COMMODE WITH AN EASY 2 PERSON ASSIST
--- NOTE | 2021-04-05 18:50 | NUR ---
SHIFT SUMMARY PATIENT RESTING IN BED. A&O X4. PLEASANT AND COOPERATIVE WITH CARE AND CALLS APPROPRIATELY. GETTING UP TO CHAIR AND BSC 1PA WITH WALKER. PATIENTS FIRST DAY ON LASIX. MULTIPLE EPISODES OF INCONTINENCE T/O SHIFT. PRESSURE SORE ON BUTTOCK DRESSING CHANGED. ON 2L NC WITH SKIRT MAKER READING HIGH 90S AT REST AND DROPPING TO LOW 90S WITH EXERTION. AWAITING PLACEMENT. WILL CONTINUE TO MONITOR.
--- NOTE | 2021-04-06 03:26 | NUR ---
SALES ASSOCIATE SUMMARY PATIENT HAD A FAIR SHIFT. SHE REALLY DID NOT HAVE ANY EVENT OVERNIGHT. HER VITALS WERE STABLE. ASSESSMENT DONE AND RECORDED. WILL CONTINUE TO MONITOR HER.
[2021-04-06 13:04] LABS: Source, Urine Clean Catch
[2021-04-06 13:07] LABS: Bilirubin, Urine Neg (Neg); Blood, Urine Neg (Neg); Glucose Qualitative, Urine Neg (Neg); Ketones, Urine Neg (Neg); Leukocyte Esterase, Urine Neg (Neg); Nitrite, Urine Neg (Neg); Protein, Urine Neg (Neg); Urobilinogen, Urine NORM (Normal)
[2021-04-06 13:10] LABS: Color, Urine Pale Yellow (P-Yellow)
[2021-04-06 13:11] LABS: Appearance, Urine Clear (Clear)
--- NOTE | 2021-04-06 18:35 | NUR ---
SHIFT SUMMARY NO ACUTE CHANGES THIS SHIFT. PT A/O X4 AND HAS SOME URGE INCONTINENCE. GETS UP TO THE BSC WITH A 1 PERSON ASSIST. WEANED DOWN TO 1 LITER O2 VIA NC. VSS. WILL REPORT TO EMPERATRIZ TURNER.
--- NOTE | 2021-04-07 03:26 | NUR ---
STRATEGIC INTELLIGENCE OFFICER SUMMARY PATIENT HAD A FAIR SHIFT. ASSESSMENT DONE AND DOCUMENTED. SHE DID NOT LODGE ANY COMPLAINTS OVERNIGHT. HER VITALS ARE STABLE. WILL CONTINUE TO MONITOR HER.
[2021-04-07 04:38] LABS: Base Excess Venous 20.4 mmol/L; Bicarbonate Venous 42.2 mmol/L (24.0-30.0); PCO2 Venous 56.6 mmHg (38-42); PO2 Venous 57.3 mmHg (38-42)
--- NOTE | 2021-04-07 17:30 | NUR ---
SHIFT SUMMARY NO ACUTE CHANGES THIS SHIFT. PT STILL RECEIVING IV ANTIBIOTICS AND REMAINS ON 1 LITER O2. AWAITING PLACEMENT. VSS. WILL REPORT TO EMPERATRIZ TURNER.
--- NOTE | 2021-04-08 03:26 | NUR ---
ANESTHESIA DIRECTOR SUMMARY PATIENT HAD A FAIR SHIFT. SHE DID NOT LODGE AND COMPLAINTS OVERNIGHT. HER ASSESSMENT DONE AND RECORDED. WILL CONTINUE TO MONITOR HER.
[2021-04-08 04:52] LABS: BASOPHILS ABSOLUTE AUTO 0.06 K/mm3 (0.00-0.23); BASOPHILS PERCENT AUTO 1 % (0-2); EOSINOPHILS ABSOLUTE AUTO 0.17 K/mm3 (0.00-0.68); EOSINOPHILS PERCENT AUTO 3 % (0-6); Hematocrit 32.6 % (33.0-51.0); Hemoglobin 9.4 g/dL (11.5-16.0); IMMATURE GRAN ABSOLUTE AUTO 0.08 K/mm3 (0.00-0.10); IMMATURE GRAN PERCENT AUTO 1 % (0-1); LYMPHOCYTES ABSOLUTE AUTO 1.06 K/mm3 (0.84-5.20); LYMPHOCYTES PERCENT AUTO 15 % (21-46); MONOCYTES ABSOLUTE AUTO 0.68 K/mm3 (0.16-1.47); MONOCYTES PERCENT AUTO 10 % (4-13); Mean Corpuscular HGB 27.7 pg (26.0-34.0); Mean Corpuscular HGB Conc 28.8 g/dL (31.5-36.5); Mean Corpuscular Volume 96 fL (80-100); Mean Platelet Volume 9.2 fL (9.1-12.4); NEUTROPHILS ABSOLUTE AUTO 4.87 K/mm3 (1.96-9.15); NEUTROPHILS PERCENT AUTO 70 % (41-73); Platelet Count 281 K/mm3 (150-400); RDW Coefficient Variation 22.7 % (11.7-14.2); RDW Standard Deviation 79.1 fL (35.1-46.3); Red Blood Cell Count 3.39 M/mm3 (3.80-5.20); White Blood Cell Count 6.92 K/mm3 (4.00-11.30)
[2021-04-08 05:29] LABS: Anion Gap 3 mmol/L (6-16); Blood Urea Nitrogen 20 mg/dL (8-24); Bun/Creatinine Ratio 26.4 (12.0-20.0); CO2, Blood 39 mmol/L (21-32); Calcium, Blood 9.9 mg/dL (8.5-10.1); Chloride, Blood 95 mmol/L (98-108); Creatinine, Blood 0.76 mg/dL (0.40-1.00); Free Thyroxine 0.93 ng/dL (0.70-1.60); Glomerular Filtration Rate >60 (60-); Glucose, Blood 90 mg/dL (70-99); Potassium, Blood 3.6 mmol/L (3.5-5.5); Sodium, Blood 137 mmol/L (136-145)
--- NOTE | 2021-04-08 17:27 | NUR ---
SHIFT SUMMARY PATIENT IS A/O X4, PLEASANT AND COOPERATIVE WITH CARE. PATIENT IS ABLE TO MAKE NEEDS KNOWN. PATIENT IS UP TO THE CHAIR FOR MEALS. THOUGH IT IS HARD FOR THE PATIENT TO SIT FOR LONG IN THE CHAIR. PATIENT IS ON 1LPM OF O2 SATTING ABOVE 90% PATIENT DESATS WITH ACTIVITY. PLAN IS FOR PATIENT TO POSSIBLY DISCHARGE HOME THURSDAY. VSS. NO ACUTE CHANGES THIS SHIFT. CALL LIGHT WITHIN REACH.
--- NOTE | 2021-04-09 04:16 | NUR ---
REGIONAL BUSINESS DEVELOPMENT MANAGER SUMMARY PATIENT HAD A FAIR SHIFT. ALERT AND ORIENTED, COOPERATIVE WITH CARE. ASSESSMENT DONE AND RECORDED. NO COMPLAINTS OVERNIGHT. SHE WAS KEPFT COMFORTABLE. WILL CONTINUE TO MONITOR HER.
--- NOTE | 2021-04-09 11:48 | NUR ---
Pt. is awake and in bed. Pt. welcomes my visit. Pt. has pleasant disposition and rapport is quickly established. Pt. is both encouraged by the progress of her recovery but unsettled about the prospect of returning home before the infection is completely addressed. 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 Pt. displays evidence of bibi. Facilitate a life review where we explore bibi and belief. Pt. displays evidence of increased sari and peace. Empire with pt. Pt. verbalizes gratitude for the spiritual care visit.
--- NOTE | 2021-04-09 17:51 | NUR ---
PT PLEASANT AND COOP TODAY. DID GET UP TO CHAIR THIS AM. NO C/O PAIN TO ME TODAY. PT STATES THINKS FEELING BETTER. INFECTION IMPROVING. NO NEW CONCERNS NOTED. BED IN LOW POSITION, CALL LITE IN REACH, CALLS APPROP
--- NOTE | 2021-04-10 05:30 | NUR ---
SHIFT SUMMARY PATIENT AOX4 ASSISTED TO THE BEDSIDE COMMODE SEVERAL TIMES PLEASANT NO ACUTE CHANGE NOTED.
[2021-04-10] MEDS ORDERED: ACET325 PO (12:23)
[2021-04-10] MEDS ORDERED: CALCIUM 600-VI1 EAC6 PO (12:51)
[2021-04-10] MEDS ORDERED: CEPH500 PO (12:51)
[2021-04-10] MEDS ORDERED: B-12500 MC2 PO (12:52)
[2021-04-10] MEDS ORDERED: DOCUZEN 8.6-501 EACH PO (12:54)
[2021-04-10] MEDS ORDERED: LISI20 PO (12:54)
[2021-04-10] MEDS ORDERED: MULVITA PO (12:56)
[2021-04-10] MEDS ORDERED: Inzo Antifun141.7 GM TOP (12:56)
[2021-04-10] MEDS ORDERED: ONDA4ODT MM (12:57)
[2021-04-10] MEDS ORDERED: VISBIOME 112.51 EACH PO (12:57)
--- NOTE | 2021-04-10 14:56 | NUR ---
Pt. is awake and in bed. Pt. is awaiting discharge. Pt. is unsettled about whether she can rest an recouperate at home after D/C. Pt. is also unsettled about Health Insurance coverage, and lost income from job during convalesance. Listen empathetically and provide a calming presence. Re-establish rapport. Pt, displays evidence of restored bibi and increased courage. Prayed with Pt. Pt. verbalized gratitude for Prayer and spiritual care.
[2021-04-10 15:07] LABS: T-TRANSGLUTAMINASE (TTG) IGA 2 U/mL (0-3); T-TRANSGLUTAMINASE (TTG) IGG 38 U/mL (0-5)
--- NOTE | 2021-04-10 16:24 | NUR ---
PATIENT DISCHARGED TO HOME ACCOMPANIED BY HER MOTHER. POWERGLIDE IV REMOVED WITHOUT INCIDENT. VERBALIZED UNDERSTANDING OF D/C ORDERS, KNOWS TO MAKE POST HOSPITAL F/U APPOINTMENT WITH NEW PCP. WAS GIVEN GOOD RX CARD FOR PRESCRIPTIONS. HOME O2 DELIVERED BY [facility]. OFF UNIT VIA W/C AT 1615; NO BELONGINGS LEFT BEHIND IN ROOM.
== END 2021-04-10 16:03 | disposition home health service (06) | DRG 871 ==
LOC: ER 16:25 → PCU 03-21 01:37 → MEDS 03-21 01:37 → ERHOLD 03-21 01:37 → PCU 03-21 02:28 → MEDS 03-25 18:56
PROVIDERS: Family Medicine; Hospitalist; Nurse Practitioner Acute Care; Physician Assistant; Student in an Organized Health Care Education/Training Program; Surgery; ADMIT Internal Medicine
PROC: 3E03329 Introduction of Other Anti-infective into Peripheral Vein, Percutaneous Approach (ICD-10-PCS; principal; 2021-03-21)
PROC: 0W9G3ZX Drainage of Peritoneal Cavity, Percutaneous Approach, Diagnostic (ICD-10-PCS; 2021-03-27)
DX: A41.9 Sepsis, unspecified organism (principal); J96.01 Acute respiratory failure with hypoxia; K65.8 Other peritonitis; J18.9 Pneumonia, unspecified organism; Z68.43 Body mass index [BMI] 50.0-59.9, adult; L03.311 Cellulitis of abdominal wall; R18.8 Other ascites; E46 Unspecified protein-calorie malnutrition; R65.20 Severe sepsis without septic shock; D72.829 Elevated white blood cell count, unspecified; I10 Essential (primary) hypertension; L89.90 Pressure ulcer of unspecified site, unspecified stage; K59.00 Constipation, unspecified; E66.01 Morbid (severe) obesity due to excess calories; E65 Localized adiposity; D73.5 Infarction of spleen; C55 Malignant neoplasm of uterus, part unspecified; Z90.710 Acquired absence of both cervix and uterus; E86.0 Dehydration; E88.09 Other disorders of plasma-protein metabolism, not elsewhere classified; G47.33 Obstructive sleep apnea (adult) (pediatric); D72.825 Bandemia; R63.0 Anorexia; R93.89 Abnormal findings on diagnostic imaging of other specified body structures
CPT/HCPCS: 36415; 49405; 51702; 71046; 71260; 74177; 76705; 80048; 80053; 80202; 81001; 81003; 82803; 83516; 83605; 83690; 83880; 84134; 84439; 84443; 85014; 85018; 85025; 85027; 85610; 86140; 86364; 86738; 87040; 87070; 87075; 87086; 87205; 87449; 94660; 94760; 94761; 94762; 96365; 96367; 96368; 96375; 97110; 97116; 97162; 97166; 97530; 97530-CQ; 97535; 99285-25; A9270; C1751; C8929; J0696; J1644; J1940; J2405; J2543; J3010; J3370; J7030; J7050; J7120; P9046; Q9957; Q9967

== ENCOUNTER → 2023-02-12 | Outpatient (CLI) | payer BC ==
[~2023-02-12] MED LIST: ACET325 PO; B-12500 MC2 PO; CALCIUM 600-VI1 EAC6 PO; CEPH500 PO; DOCUZEN 8.6-501 EACH PO; Inzo Antifun141.7 GM TOP; LISI20 PO; MULVITA PO; ONDA4ODT MM; VISBIOME 112.51 EACH PO
[2023-02-12 19:41] LABS: BASOPHILS ABSOLUTE AUTO 0.05 K/mm3 (0.00-0.23); BASOPHILS PERCENT AUTO 1 % (0-2); EOSINOPHILS ABSOLUTE AUTO 0.07 K/mm3 (0.00-0.68); EOSINOPHILS PERCENT AUTO 2 % (0-6); Hematocrit 39.7 % (33.0-51.0); Hemoglobin 13.6 g/dL (11.5-16.0); IMMATURE GRAN ABSOLUTE AUTO 0.01 K/mm3 (0.00-0.10); IMMATURE GRAN PERCENT AUTO 0 % (0-1); LYMPHOCYTES ABSOLUTE AUTO 1.73 K/mm3 (0.84-5.20); LYMPHOCYTES PERCENT AUTO 38 % (21-46); MONOCYTES ABSOLUTE AUTO 0.56 K/mm3 (0.16-1.47); MONOCYTES PERCENT AUTO 12 % (4-13); Mean Corpuscular HGB 31.9 pg (26.0-34.0); Mean Corpuscular HGB Conc 34.3 g/dL (31.5-36.5); Mean Corpuscular Volume 93 fL (80-100); Mean Platelet Volume 10.4 fL (9.1-12.4); NEUTROPHILS ABSOLUTE AUTO 2.16 K/mm3 (1.96-9.15); NEUTROPHILS PERCENT AUTO 47 % (41-73); Platelet Count 242 K/mm3 (150-400); RDW Coefficient Variation 12.8 % (11.7-14.2); RDW Standard Deviation 43.7 fL (35.1-46.3); Red Blood Cell Count 4.27 M/mm3 (3.80-5.20); White Blood Cell Count 4.58 K/mm3 (4.00-11.30)
[2023-02-12 21:05] LABS: Albumin, Blood 3.6 g/dL (3.4-5.0); Albumin/Globulin Ratio 0.9 (0.8-1.8); Bilirubin, Total 0.6 mg/dL (0.1-1.0); Bun/Creatinine Ratio 10.6 (12.0-20.0); Calcium, Blood 9.9 mg/dL (8.5-10.1); Creatinine, Blood 1.13 mg/dL (0.40-1.00); Globulin, Blood 3.9 g/dL (2.2-4.0); Potassium, Blood 4.3 mmol/L (3.5-5.5); Thyroid Stimulating Hormone 1.2 uIU/mL (0.360-4.800); Total Protein, Blood 7.5 g/dL (6.4-8.2)
== END ==
LOC: LAB SHORT 17:00 → LAB 17:00
PROVIDERS: Family Medicine
DX: R53.83 Other fatigue (principal)
CPT/HCPCS: 80053; 84443; 85025; 87086

== ENCOUNTER → 2023-10-05 | Outpatient (CLI) | payer MEDICARE ==
[2023-10-05 16:25] LABS: BASOPHILS ABSOLUTE AUTO 0.05 K/mm3 (0.00-0.23); BASOPHILS PERCENT AUTO 1 % (0-2); EOSINOPHILS ABSOLUTE AUTO 0.08 K/mm3 (0.00-0.68); EOSINOPHILS PERCENT AUTO 2 % (0-6); Hemoglobin 13.2 g/dL (11.5-16.0); IMMATURE GRAN PERCENT AUTO 0 % (0-1); LYMPHOCYTES ABSOLUTE AUTO 1.97 K/mm3 (0.84-5.20); LYMPHOCYTES PERCENT AUTO 45 % (21-46); MONOCYTES ABSOLUTE AUTO 0.36 K/mm3 (0.16-1.47); MONOCYTES PERCENT AUTO 8 % (4-13); Mean Corpuscular HGB 31.7 pg (26.0-34.0); Mean Corpuscular HGB Conc 34.7 g/dL (31.5-36.5); Mean Corpuscular Volume 91 fL (80-100); Mean Platelet Volume 10.7 fL (9.1-12.4); NEUTROPHILS ABSOLUTE AUTO 1.93 K/mm3 (1.96-9.15); NEUTROPHILS PERCENT AUTO 44 % (41-73); Platelet Count 254 K/mm3 (150-400); RDW Coefficient Variation 12.1 % (11.7-14.2); RDW Standard Deviation 40.6 fL (35.1-46.3); Red Blood Cell Count 4.16 M/mm3 (3.80-5.20); White Blood Cell Count 4.39 K/mm3 (4.00-11.30)
[2023-10-05 18:54] LABS: Alanine Aminotransfer (ALT/SGP 21 U/L (12-78); Albumin, Blood 4.1 g/dL (3.4-5.0); Alk Phos 49 U/L (50-136); Anion Gap 9 mmol/L (3-11); Aspartate Aminotrans (AST/SGOT 15 U/L (12-37); Bilirubin, Total 0.4 mg/dL (0.1-1.0); Blood Urea Nitrogen 30 mg/dL (8-24); Bun/Creatinine Ratio 21.6 (12.0-20.0); CHOL/HDL RATIO 3.9; CO2, Blood 26 mmol/L (21-32); Calcium, Blood 9.8 mg/dL (8.5-10.1); Chloride, Blood 105 mmol/L (98-108); Cholesterol 241 mg/dL (50-200); Creatinine, Blood 1.39 mg/dL (0.40-1.00); Globulin, Blood 4.3 g/dL (2.2-4.0); Glomerular Filtration Rate 42 (60-); Glucose, Blood 82 mg/dL (70-99); HDL Cholesterol 62 mg/dL (>39); LDL/HDL RATIO 2.4; Low Density Lipoprotein Chol 148 mg/dL (0-110); Potassium, Blood 4.4 mmol/L (3.5-5.5); Sodium, Blood 136 mmol/L (136-145); Total Protein, Blood 8.4 g/dL (6.4-8.2); Triglycerides 153 mg/dL (30-160); Very Low Density Lipoprot Chol 30 mg/dL (6-32)
== END ==
LOC: LAB SHORT 14:55 → LAB 14:55
PROVIDERS: Family Medicine
DX: E78.2 Mixed hyperlipidemia (principal); E66.2 Morbid (severe) obesity with alveolar hypoventilation; I12.9 Hypertensive chronic kidney disease with stage 1 through stage 4 chronic kidney disease, or unspecified chronic kidney disease
CPT/HCPCS: 80053; 80061; 83036; 84443; 85025

== ENCOUNTER → 2024-03-07 | Outpatient (CLI) | payer MEDICARE ==
[2024-03-07 15:19] LABS: Source, Urine Voided
[2024-03-07 16:11] LABS: Appearance, Urine Clear (Clear); Bilirubin, Urine Neg (Neg); Blood, Urine Neg (Neg); Color, Urine Yellow (P-Yellow); Glucose Qualitative, Urine Neg (Neg); Ketones, Urine Neg (Neg); Leukocyte Esterase, Urine 2+ (Neg); Nitrite, Urine Neg (Neg); Protein, Urine 1+ (Neg); Specific Gravity, Urine 1.015 (1.003-1.022); Urobilinogen, Urine NORM (Normal)
[2024-03-07 16:21] LABS: Red Blood Cells, Urine 0-2 /hpf (0-2)
[2024-03-07 16:22] LABS: Bacteria Few /hpf; Squamous Epithelial Cells Few /hpf (Few)
[2024-03-07 16:23] LABS: BASOPHILS ABSOLUTE AUTO 0.06 K/mm3 (0.00-0.23); BASOPHILS PERCENT AUTO 1 % (0-2); EOSINOPHILS PERCENT AUTO 2 % (0-6); Hematocrit 40.3 % (33.0-51.0); Hemoglobin 13.7 g/dL (11.5-16.0); IMMATURE GRAN ABSOLUTE AUTO 0.01 K/mm3 (0.00-0.10); IMMATURE GRAN PERCENT AUTO 0 % (0-1); LYMPHOCYTES ABSOLUTE AUTO 2.01 K/mm3 (0.84-5.20); LYMPHOCYTES PERCENT AUTO 41 % (21-46); MONOCYTES ABSOLUTE AUTO 0.39 K/mm3 (0.16-1.47); MONOCYTES PERCENT AUTO 8 % (4-13); Mean Corpuscular HGB 31.6 pg (26.0-34.0); Mean Corpuscular Volume 93 fL (80-100); Mean Platelet Volume 10.3 fL (9.1-12.4); NEUTROPHILS PERCENT AUTO 47 % (41-73); Platelet Count 252 K/mm3 (150-400); RDW Coefficient Variation 11.9 % (11.7-14.2); RDW Standard Deviation 40.9 fL (35.1-46.3); Red Blood Cell Count 4.33 M/mm3 (3.80-5.20); White Blood Cell Count 4.87 K/mm3 (4.00-11.30)
[2024-03-07 16:51] LABS: Albumin/Globulin Ratio 0.9 (0.8-1.8); Bilirubin, Total 0.5 mg/dL (0.1-1.0); Bun/Creatinine Ratio 19.1 (12.0-20.0); Calcium, Blood 10.4 mg/dL (8.5-10.1); Creatinine, Blood 1.52 mg/dL (0.40-1.00); Globulin, Blood 4.4 g/dL (2.2-4.0); Potassium, Blood 4.4 mmol/L (3.5-5.5); Thyroid Stimulating Hormone 3.36 uIU/mL (0.360-4.800); Total Protein, Blood 8.4 g/dL (6.4-8.2)
== END ==
LOC: LAB 15:14 → LAB SHORT 15:14
PROVIDERS: Family Medicine
DX: I12.9 Hypertensive chronic kidney disease with stage 1 through stage 4 chronic kidney disease, or unspecified chronic kidney disease (principal); R53.83 Other fatigue
CPT/HCPCS: 80053; 81001; 84443; 85025; 87086